=== PATIENT | female | born 1945 | race Caucasian/White ===

== ENCOUNTER 2020-05-18 10:57 | Outpatient (RCR) | payer MEDICARE, SELFPAY ==
--- NOTE | 2020-05-18 13:03 | PTOPEVAL ---
Thank you for referring Apoorva Farfan to [facility] The patient is scheduled to be seen for therapy? ____x/week for ___ weeks. Please review, sign, date and return this plan of care APRIL. I agree with and certify that the following plan of care is medically necessary. Referring Physician Date Admitting Provider: Attending Provider: PHYSICIAN NOT ON STAFF Referring Provider: *PT Outpatient Evaluation Start: 05/18/20 11:06 Freq: Status: Active Protocol: Document 05/18/20 11:05 LAQUITA (Rec: 05/18/20 11:49 [facility] [id number]) Therapy Assessment Status Assessment Status Assessment Status Evaluation Evaluation Information Problem Diagnosis R reverse total shoulder Onset 04/29/20 Subjective Information patient reports she underwent Query Text:As Reported By Patient/ surgery of the R shoulder due Family to pain, weakness, and arthritis. 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 she reports she is has been taken out of the sling as of last week. she reports she is limited in her home and self care at home. she reports she has pain still in the R shoulder. Prior Level of Function Comments Additional Prior Level of Function prior to surgery, patient had Comments tried therapy. she reports the pain came and went and was very weak. she reports just prior to surgery she was in increased pain and unable to lift the arm overhead. Pain Assessment Timing of Pain Assessment Timing of Pain Assessment Assessment Pain Scale Pain Scale Used Numeric (1 - 10) Self Report Pain Assessment Right Shoulder(s) Reported Pain Level 6 Lowest Pain Intensity 2 Greatest Pain Intensity 7 Pain Score Pain Score 6: Self Report Upper Extremity Range of Motion Scapular/ Shoulder Range of Motion Right Shoulder Flexion - Active 55 Shoulder Flexion - Passive 85 Shoulder Medial Rotation - Active 45 Shoulder Lateral Rotation - Active 10 Left Shoulder Flexion - Active 150 Shoulder Flexion - Passive 160 Shoulder Medial Rotation - Active 60 Shoulder Lateral Rotation - Active 90 Elbow/Forearm Range of Motion Right Elbow Flexion - Active 135 Elbow Extension - Active
--- NOTE | 2020-06-17 13:11 | PTOPEVAL ---
Thank you for referring Apoorva Carrillo to [facility].? The patient is scheduled to be seen for therapy? ____x/week for ___ weeks. Please review, sign, date and return this plan of care APRIL. I agree with and certify that the following plan of care is medically necessary. Referring Physician Date Admitting Provider: Attending Provider: PHYSICIAN NOT ON STAFF Referring Provider: *PT Outpatient Evaluation Start: 05/18/20 11:06 Freq: Status: Active Protocol: Document 06/17/20 11:08 [facility] (Rec: 06/17/20 11:45 [facility] [id number]) Therapy Assessment Status Assessment Status Assessment Status Re-evaluation Evaluation Information Problem Diagnosis R reverse total shoulder Subjective Information patient reports she feels Query Text:As Reported By Patient/ good this date. she reports Family her shoulder is feeling better every day, but still [place] some soreness in it. Pain Assessment Timing of Pain Assessment Timing of Pain Assessment Assessment Pain Scale Pain Scale Used Numeric (1 - 10) Self Report Pain Assessment Right Shoulder(s) Reported Pain Level 3 Greatest Pain Intensity 5 Pain Score Pain Score 3: Self Report Upper Extremity Range of Motion Scapular/ Shoulder Range of Motion Right Shoulder Flexion - Active 105 Shoulder Flexion - Passive 130 Shoulder Lateral Rotation - Passive 30 General Exercise General Exercises Exercise Description -15 min PROM per protocol Query Text:Record Sets, Reps, -AROM elbow flexion/ext x 20 Resistance, and Position ea -AROM shoulder flexion/ scaption x 10 ea. -finger ladder x 10 -pulleys x 5 min -5 mintues re-evaluation and HEP reivew PT Clinical Summary Clinical Summary Protocol: PTEVCODE PT Clinical Summary mrs. carrillo tolerates therapy well this date. she presents with having achieved her full PROM mobility allowed at the R shoulder at this time. however, she still lacks full mobility in AROM of the R shoulder. she would do well to continue skilled PT to continue to improve her mobility, and begin adding strengthening exercises of the shoulder late next week after MD [place]
--- NOTE | 2020-07-20 11:54 | PTOPEVAL ---
Thank you for referring Apoorva Farfan to [facility].? The patient is scheduled to be seen for therapy? ____x/week for ___ weeks. Please review, sign, date and return this plan of care APRIL. I agree with and certify that the following plan of care is medically necessary. Referring Physician Date Admitting Provider: Attending Provider: PHYSICIAN NOT ON STAFF Referring Provider: *PT Outpatient Evaluation Start: 05/18/20 11:06 Freq: Status: Active Protocol: Document 07/20/20 10:55 [facility] (Rec: 07/20/20 11:54 [facility] [id number]) Therapy Assessment Status Assessment Status Assessment Status Re-evaluation Evaluation Information Problem Diagnosis R reverse total shoulder Subjective Information patient reports she feels Query Text:As Reported By Patient/ Good this date. she reports Family she still is having difficulty with lifting things with the R UE. however, she reports she is improved since her surgery and is stronger week to week. Pain Assessment Timing of Pain Assessment Timing of Pain Assessment Assessment Pain Scale Pain Scale Used Numeric (1 - 10) Self Report Pain Assessment Right Shoulder(s) Reported Pain Level 2 Greatest Pain Intensity 4 Pain Score Pain Score 2: Self Report Interventions Used Interventions Used By Clinicians Activity or ADL's,Education, Exercise,Heat Upper Extremity Range of Motion Scapular/ Shoulder Range of Motion Right Shoulder Flexion - Active 120 Shoulder Flexion - Passive 145 Shoulder Medial Rotation - Active 55 Shoulder Lateral Rotation - Active 65 Upper Extremity Muscle Strength Testing Scapular/Shoulder Right Shoulder Flexion Strength 4 Good Shoulder Abduction Strength 4- Good - Shoulder Medial Rotation Strength 4+ Good + Shoulder Lateral Rotation Strength 3+ Fair + Elbow/Forearm Right Elbow Flexion Strength 4+ Good + Elbow Extension Strength 4+ Good + General Exercise General Exercises Exercise Description -10 min PROM in all planes per Query Text:Record Sets, Reps, new protocol Resistance, and Position -pulleys x 5 min -AROM elbow curls 2lbs x 25 ea -AROM shoulder flexion shoulder height 2x10 to shoulder level 2lb -AROM shoulder scap no weight to shoulder height 2x10 -arom sidelying shoulder ER 2lb x20 -arom supine shoulder flex 2lb
--- NOTE | 2020-08-03 11:16 | PCPTNOTE ---
patient called and cancelled appt due to testing positive for covid. AMINA
--- NOTE | 2020-10-26 11:16 | PCPTNOTE ---
10/26/20 - patient has not been to therapy in over a month for follow up. she has been called and reports she is doing well and does not need skilled PT any longer. as of this date, patient will be DC'd from skilled PT services and all progress towards goals will be taken from most recent evaluation/note. LAQUITA
== END 2020-08-31 15:17 | disposition home or self-care (01) ==
LOC: CHSPT 10:57
PROVIDERS: PCP Nurse Practitioner Family
DX: Z96.611 Presence of right artificial shoulder joint (principal)
CPT/HCPCS: 97014; 97110; 97161; G0283

== ENCOUNTER 2020-07-31 16:43 | Outpatient (CLI) | payer MEDICARE, SELFPAY ==
[2020-08-02 20:45] LABS: SARS-CoV-2 RNA PCR Positive
== END 2020-07-31 16:44 | disposition home or self-care (01) ==
LOC: CHSLAB 16:46
PROVIDERS: Family Medicine; PCP Nurse Practitioner Family; Visit Provider Nurse Practitioner Family
DX: Z20.828 Contact with and (suspected) exposure to other viral communicable diseases (principal)
CPT/HCPCS: 87635; C9803; U0003

== ENCOUNTER 2020-08-31 11:07 | Outpatient (RCR) | payer MEDICARE, SELFPAY ==
--- NOTE | 2020-09-14 12:11 | PCPTNOTE ---
09/14/20 mrs. carrillo presents to therapy for quick assessment of R shoulder ROM and strength this date. she has attended therapy dating back to may of 2020. as of this date, she presents with improvements in arom shoulder mobility. however, she still presents with deficits in functional IR and ER reaching. she has been continuing HEP exercises at home independently for the past 2 weeks. she is tolerating HEP well and presents with no loss or reduction of progress towards goals. please see below for measurements taken this date. patient is currently planning to continue with HEP at home independently. 130 degrees active flexion, 145 degrees passive flexion 65 degrees active ER, 70 degrees passive ER 55 degrees active IR, 60 degrees active IR 4/5 R shoulder flexion, 4/5 R shoudler ER, 4+/5 R shoulder IR please feel free to contact my office with any other questions or concerns about mrs carrillo's case. thank you for the opportunity to participate in her care and rehab. sincerely, Paxton Medina, DPT [phone]
== END 2020-11-29 23:59 | disposition home or self-care (01) ==
LOC: CHSPT 11:07
PROVIDERS: PCP Nurse Practitioner Family
DX: Z96.611 Presence of right artificial shoulder joint (principal)
CPT/HCPCS: 97110

== ENCOUNTER 2022-09-27 12:31 | Outpatient (CLI) | payer MEDICARE, SELFPAY ==
--- NOTE | ~2022-09-27 | DEXA_ITS ---
Bone Density Report Name: Cristóbal MARTINEZ Age: 77 Sex: Female Ethnicity: White Date of : 1945 Indication: postmenopausal; screening for osteoporosis; prior fracture; Referring Provider: HUNG, KVNG Schrader Study: Bone densitometry was performed. Exam Date: September 27, 2022 Accession number: [id number] Bone Density: Region BMD T-score Z-score Classification AP Spine(L1-L4) 1.203 1.4 3.9 Normal Femoral Neck (Left) 0.636 -1.9 0.2 Osteopenia Total Hip (Left) 0.831 -0.9 0.9 Normal Femoral Neck (Right) 0.637 -1.9 0.2 Osteopenia Total Hip (Right) 0.813 -1.1 0.8 Osteopenia Total Hip Mean 0.822 -1.0 0.9 Normal World Health Organization criteria for BMD impression classify patients as: Normal (T-score at or above -1.0), Osteopenia (T-score between -1.0 and -2.5), or Osteoporosis (T-score at or below -2.5). 10-year Fracture Risk(1): Major Osteoporotic Fracture 20% Hip Fracture 4.6% Reported Risk Factors: [place] (), Neck BMD=0.636, BMI=28.3, previous fracture (1) FRAX(R) Version 3.08. Fracture probability calculated for an untreated patient. Fracture probability may be lower if the patient has received treatment. Clinical Information Provided by Patient: Has had a low trauma fracture Has used the following medications: Vitamin D Patient maximum height was 67 Menopause Age: 56 No regular weight bearing exercise Does not regularly consume dairy products Drinks caffeinated beverages Onset of menses at age 16 Number of children 4 Impression: The patient has low bone mass, based on the Left Femoral Neck T-score. The patient has an estimated ten-year risk of hip fracture of 4.6% and an estimated ten-year risk of major fracture of 20%, based on the WHO FRAX algorithm. The patient has risk factors, including: previous fracture. Discussion: BONE DENSITY IS LOW AT ONE OR MORE SKELETAL SITES. THE PATIENT'S BMD AND CLINICAL RISK FACTORS CONTRIBUTE TO THIS PATIENT'S HIGH RISK OF FRACTURE. This patient's lowest T-score is low at one or more skeletal sites. It meets the World Health Organization's (WHO) criteria for ?low bone mass? (T-score between -1.0 and -2.5). The patient's 10-year risk of hip fracture and 10 year risk of a major osteoporotic fracture as calculated by FRAX exceeds the threshold where pharmacological therapy is recommended by the National Osteoporosis Foundation (NOF). However, all treatment decisions require clinical judgment and consideration of individual patient factors, including patient preferences, comorbidities, previous drug use, risk factors not captured in the FRAX model (e.g., frailty, falls, vitamin D deficiency, increased bone turnover, interval significant decline in bone density) and possible under or overestimation of fracture risk by FRAX. The patient
== END 2022-09-27 12:32 | disposition home or self-care (01) ==
LOC: ANHIMG 12:32
PROVIDERS: PCP Family Medicine; Visit Provider Family Medicine
DX: Z78.0 Asymptomatic menopausal state (principal); M85.89 Other specified disorders of bone density and structure, multiple sites
CPT/HCPCS: 77080

== ENCOUNTER 2024-12-23 14:07 | Outpatient (CLI) | payer MEDICARE, SELFPAY ==
--- NOTE | ~2024-12-23 | MM_ITS ---
EXAMINATION: MM screening navarro BI w romina HISTORY: Screening TECHNIQUE: Craniocaudal and mediolateral oblique 3-D tomosynthesis images were obtained and synthetic 2-D images were generated. CAD analysis was submitted and interpreted. COMPARISON: No prior studies for comparison. BREAST PARENCHYMAL COMPOSITION: Not dense: There are scattered areas of fibroglandular density. FINDINGS: There is no evidence of suspicious mass, calcification, or architectural distortion to sugg est malignancy in either breast. There has been no suspicious interval change. IMPRESSION: 1. No mammographic evidence of malignancy. 2. Recommend routine screening mammography in one year. BI-RADS Category 1: Negative Reviewed, dictated and finalized at location A.
--- OUTSIDE RECORDS SUMMARY | 2024-12-23 16:15 | XMS_ITS | Clinical Summary ---
Author Organization [facility] Address [address] [place] [phone] Care Team Providers Care Entertainment Dancer Name Role Phone Pernell Topete MD Primary Care Provider Allergies Active Allergy Reactions Criticality Noted Date Comments Adhesive Rash Medium 03/24/2020 Codeine Nausea only Low 03/24/2020 Penicillins Unknown 03/24/2020 Medications cyanocobalamin, vitamin B-12, (VITAMIN B-12 ORAL) Take 500 mg by mouth 2 (two) times a day Active multivit-min/ferr ous fumarate (MULTI VITAMIN ORAL) Take 1 tablet by mouth every morning Active Lactobacillus acidophilus (PROBIOTIC ORAL) Take 1 tablet by mouth every morning Active cholecalciferol, vitamin D3, (VITAMIN D3 ORAL) Take by mouth Active aspirin 81 mg enteric coated tablet Take 1 tablet (81 mg total) by mouth daily Active acetaminophen (TylenoL) 325 mg tablet Take 2 tablets (650 mg total) by mouth every 6 (six) hours as needed for pain 4 Active amLODIPine (NORVASC) 2.5 mg tablet Take 1 tablet (2.5 mg total) by mouth daily Take with 5 mg tablet to bring total dosage to 7.5 mg daily 90 tablet 3 4 12/27/19 25 Active ibuprofen (ADVIL,MOTRIN) 800 mg tabletIndications :Anti-inflammator y Take 1 tablet (800 mg total) by mouth 3 (three) times a day as needed for pain 90 tablet 4 Active albuterol HFA (Proventil HFA) 90 mcg/actuation inhalerIndication s:Subacute cough Inhale 2 puffs every 4 (four) hours as needed for wheezing or shortness of breath 6.73 each 4 4 04/25/20 25 Active losartan (COZAAR) 50 mg tabletIndications :Primary hypertension Take 1 tablet (50 mg total) by mouth daily 90 tablet 3 4 Active metoprolol (LOPRESSOR) 100 mg tabletIndications :Primary hypertension Take 1 tablet (100 mg total) by mouth daily 90 tablet 3 4 Active amLODIPine (NORVASC) 5 mg tabletIndications :Primary hypertension TAKE 1 TABLET BY MOUTH DAILY TAKE WITH 2.5 MG TABLET FOR A TOTAL DAILY DOSE OF 7.5 MG 100 tablet 2 5 Active doxycycline (VIBRAMYCIN) 100 mg capsule Take 1 tablet/capsul e (100 mg total) by mouth 2 (two) times a day for 5 days 10 tablet/capsu le 5 11/26/19 25 Active Problems Problem Noted Date Diagnosed Date Encounter for Medicare annual wellness exam 09/05 Assessment & Plan (10/02/2023 9:25 AM SPECIALIZED DEVELOPER): A(n) yearly Medicare Annual Wellness Visit has been performed today. Cristóbal Farfan is not up to date on screening tests. He is in need of Breast cancer screening. She is not up to date on needed preventative vaccinations; She is in need of Tdap/Td, Influenza, Zoster, and Covid-19 (booster). We discussed healthy lifestyle habits, educational material has been given. Medications reviewed, changes documented as per the medical record and discussed with patient along with risks vs benefits. Continue current regimen Labs reviewed; noted improvement in LDL especially Triglycerides still need work; Try to make lifestyle modifications such as: a low carbohydrate diet, daily routine exercise (at least 30 mins a day, 5 days a week of light to moderate cardio) and weight reduction. Add good fish oil or omega-3 fatty acid supplement Return in 6 months Encounter for medical examination to establish c are 02/07/2022 Assessment & Plan (09/06/2022 12:36 PM SPECIALIZED DEVELOPER): A(n) yearly Medicare Annual Wellness Visit has been performed today. Cristóbal Farfan is not up to date on screening tests. She is in need of DEXA, Hepatitis C and Colon cancer screening- patient relates that she had her colonoscopy around 5 years ago in [place]. She is not up to date on needed preventative vaccinations; She is in need of Pneumonia (Prevnar-13 or Pneumovax-23) and Covid-19 (booster). Pneumonia vaccination given today BP is controlled well Continuing current regimen Labs look well (the triglycerides improved, HDL has decreased however). Encouraged exercise to improve HDL/good cholesterol Assessment & Plan (02/07/2022 12:05 PM CDT): A(n) initial Medicare Annual Wellness Visit has been performed today. Apoorva Farfan is up to date on screening tests. She is in need of DEXA, Hepatitis C screening and Colon cancer screening- getting outside records. She is not up to date on needed preventative vaccinations; She is in need of Tdap/Td, Pneumonia (Prevnar-13 or Pneumovax-23) and Zoster. BP improved upon recheck. I still will want to increase amlodipine to 7.5 mg daily (1 and a half pill daily) Continue others Will see back in 1 month Labs as ordered Ringing in ears, bilateral 09/15/2021 Assessment & Plan (09/17/2021 10:42 PM SPECIALIZED DEVELOPER): Continue with Alivia 60mg bid. May use Flonase at HS, one spray each nostril in the PM Do not try and pop ears. Dizziness on standing 08/31/2021 Assessment & Plan (09/17/2021 10:48 PM SPECIALIZED DEVELOPER): Continue with Alivia and Flonase as previously stated. Orthostatic pressures taken sitting and standing without any difference. Patient denied any dizziness at that time. Romberg done, negative. Assessment & Plan (09/02/2021 10:55 PM SPECIALIZED DEVELOPER): Make sure she is drinking enough fluids. Checked blood pressure for orthostatic problems No major differences in orthostatic pressures. Will continue to monitor blood pressure at home. Will start Meclizine 12.5mg at HS Allergic rhinitis due to allergen 08/31/2021 Assessment & Plan (09/17/2021 10:40 PM SPECIALIZED DEVELOPER): Continue with Alivia 60 mg bid. Talked about avoid triggers. Assessment & Plan (09/02/2021 10:43 PM SPECIALIZED DEVELOPER): Continue to take Alivia 60 mg daily, can increase dose to bid and up to tid. Talked about watching allergens.new and old. Risk factors for obstructive sleep apnea 020 HTN (hypertension) 04/27/2020 Assessment & Plan (09/17/2021 10:39 PM SPECIALIZED DEVELOPER): Continue with medication as ordered. Talked about diet, avoiding salt and salty food. Talked about home exercise program for 30 min , 3 times a week. Adequate fluids. Will do lab work at next visit. Assessment & Plan (09/02/2021 10:41 PM SPECIALIZED DEVELOPER): Continue with medication as ordered Encouraged to monitor BP at home at least 3 times a week at alternate time. Exercise 3 times a week for 30 minutes. Eat balanced, low salt diet or no added salt to food. Lab work due. Rotator cuff tear arthropathy of right shoulder 03/25/2020 Overview (03/25/2020): Added automatically from request for surgery [id number] Assessment & Plan (09/17/2021 10:44 PM SPECIALIZED DEVELOPER): Note continues to have some right shoulder pain. Encouraged to continue with exercises she got from PT on a daily basis. Note is also using some Topical meds for shoulder pain. Watch lifting with her right arm and shoulder. Assessment & Plan (09/02/2021 10:57 PM SPECIALIZED DEVELOPER): Note right shoulder is stable. Still has some limited ROM\ Encouraged to continue with exercise shoulder as advised by PT. Patient states shoulder is getting stronger. Encounters Date Type Department Care Team Description 11/24/2024 Telephone [facility] Primary Care at [address] [phone] Pernell Topete MD Medical Question/Krystynacellchris s 11/20/2024 1:30 PM CDT Office Visit [facility] at [address] [phone] Pernell Topete MD Encounter for annual wellness visit (AWV) in Medicare patient (Primary Dx); Vitamin D insufficiency; Primary hypertension; Chronic pain of right knee; Breast cancer screening by mammogram; Screening for osteoporosis; Asymptomatic menopausal state 2024 1:00 PM SPECIALIZED DEVELOPER Lab [facility] at [address] [phone] HTN (hypertension) (Primary Dx) 2024 12:48 PM SPECIALIZED DEVELOPER - 2024 11:59 PM SPECIALIZED DEVELOPER Hospital Encounter [place] [phone] Primary hypertension; Vitamin D insufficiency Discharge Disposition: Discharge to home or self care from Last 3 Months Immunizations Immunization Administration Dates Next Due Influenza, Unspecified 11/20/2024(Deferr ed: Patient Refused),10/02/2023(Deferred: Patient Refused),09/04/2023(Deferred: Patient Refused),09/06/2022(Deferred: Patient Refused),09/04/2022(Deferred: Patient Refused),09/04/2021(Deferred: Patient Refused),09/03/2021(Deferred: Patient Refused),08/31/2021(Deferred: Patient Refused),08/31/2020(Deferred: Patient Refused) Pfizer SARS-CoV-2 Monovalent Vaccination (12+ Yrs) PURPLE 09/11/2021,10/27/2020,10/06/2020 Pneumococcal Conjugate Pcv20 09/06/2022 ZOSTER Recombinant 07/08/2023,06/04/2023 Surgical History Surgery Date Site/Laterality Comments TONSILLECTOMY APPENDECTOMY SHOULDER SURGERY CHOLECYSTECTOMY OVARY SURGERY DILATION AND CURETTAGE OF UTERUS Medical History Medical History Date Comments Hypertension Family History Medical History Relation Name Comments Asthma Brother COPD Brother Prostate cancer Father Alzheimer's disease Mother COPD Mother Relation Name Status Comments Brother Father Mother Social History Tobacco Use Types Packs/Day Years Used Date Smoking Tobacco: Never Smokeless Tobacco: Never Tobacco Cessation:Counseling Given: Not Answered Alcohol Use Standard Drinks/Week Comments Yes 0 (1 standard drink = 0.6 oz pur e alcohol) social AUDIT-C Answer Date Recorded Q1: How often do you have a drink containing alcohol? Never 10/02/2023 Q2: How many drinks containi ng alcohol do you have on a typical day when you are drinking? Patient does not drink Q3: How often do you have si x or more drinks on one occasion? Never 10/02/2023 PHQ-2 Answer Date Recorded PHQ-2 Total Score (If total score is 3 or more points, staff should administer the PHQ-9) 0 11/20/2024 Comments Unknown Sex and Gender Information Value Date Recorded Sex Assigned at Not on file Legal Sex Female 9:21 AM CDT Gender Identity Not on file Sexual Orientation Not on file Obstetrics History Last Filed Vital Signs Vital Sign Reading Time Taken Comments Blood Pressure 110/70 11/20/2024 10:56 AM CDT Pulse 78 11/20/2024 10:56 AM CDT Temperature 35.9 C (96.7 F) 11/20/2024 10:56 AM CDT Respiratory Rate 16 11/20/2024 10:56 AM CDT Oxygen Saturation 96% 11/20/2024 10:56 AM CDT Inhaled Oxygen Concentration - - Weight 79.4 kg (175 lb) 11/20/2024 10:56 AM CDT Height 170.2 cm (5' 7 ) 11/20/2024 10:56 AM CDT Body Mass Index 27.41 11/20/2024 10:56 AM CDT Plan of Treatment Health Maintenance Due Date Last Done Comments Hepatitis B Screening 1963 Breast Cancer Screening-Mammogram 09/14/2023 09/14/2022, 09/14/2022, 08/30/2021, Additional history exists Covid-19 Vaccine ( season) 2024 09/11/2021, 10/27/2020, 10/06/2020 Osteoporosis Screening-Bone Density Scan 09/27/2024 09/27/2022 Influenza Vaccine (#1) 2025 Postp oned from 05/04/2024 (Patient declined, but will receive in the future) DTaP/Tdap/Td Vaccine (1 - Tdap) 09/02/2025 Postponed from 1956 (Insurance / Financial) Depression Screening 11/20/2025 11/20/2024, 04/01/2024, 10/02/2023, Additional history exists Fall Risk Assessment 11/20/2025 11/20/2024, 10/02/2023, 03/07/2023, Additional history exists Well Visit 65+ 11/20/2025 11/20/2024, 09/05, 09/06/2022 Pneumococcal vaccine 65+ Completed 09/06/2022 Colon Cancer Screening-DNA Stool Discontinued 09/20/2022 Colon Cancer Screening-FIT Discontinued 09/20/2022 Colon Cancer Screening-FOBT Discontinued 09/20/2022 Colorectal Cancer Screening Discontinued Hepatitis C Screening Completed 03/07/2023 Zoster Vaccine Completed 07/08/2023, 06/04/2023 Colon Cancer Screening-CT Colonography Discontinued Colon Cancer Screening-Colonoscopy Discontinued Colon Cancer Screening-Sigmoidoscopy Discontinued Medical Devices Implanted Type Area Tomato Grader Device Identifier Shelf Expiration Date Model / Serial / Lot [employer] [id number] 25mm Reverse Shoulder Baseplate Glenoid Trabecular Metal - [id number] Implanted:Qty: 1 on 04/29/2020 by Hoang Bates MD at [facility] Right: Shoulder [employer] [id number] 12/01/2029 [id number] / / [id number] [employer] .29911.042 Ncb Anatomical Shoulder 4.5mm 42mm Inverse Reverse Lock Self Tap - [id number] Implanted:Qty: 1 on 04/29/2020 by Hoang Bates MD at [facility] Right: Shoulder [employer] [id number] 08/02/2022.25364.042 / / [id number] [employer] .76000.042 Ncb Anatomical Shoulder 4.5mm 42mm Inverse Reverse Lock Self Tap - [id number] Implanted:Qty: 1 on 04/29/2020 by Hoang Bates MD at [facility] Right: Shoulder [employer] [id number] 09/02/2022.29799.042 / / [id number] [employer] [id number] 36mm Reverse Shoulder Sphere Glenoid Trabecular Metal - [id number] Implanted:Qty: 1 on 04/29/2020 by Hoang Bates MD at [facility] Right: Shoulder [employer] [id number] 03/02/2030 [id number] / / [id number] [employer] [id number] 12mm 130mm Shoulder Stem Humeral Trabecular Metal Tivanium - [id number] Implanted:Qty: 1 on 04/29/2020 by Hoang Bates MD at [facility] Right: Shoulder [employer] [id number] 12/01/2029 [id number] / / [id number] [employer] [id number] 36mm H+3mm Reverse Retentive Humerus 12d 65d Liner Shoulder - [id number] Implanted:Qty: 1 on 04/29/2020 by Hoang Bates MD at [facility] Right: Shoulder [employer] [id number] 03/02/2021 [id number] / / [id number] Procedures Procedure Name Priority Date/Time Associated Diagnosis Comments EGFR Routine 2024 12:48 PM SPECIALIZED DEVELOPER Primary hypertension DIFFERENTIAL AUTO Routine 2024 12: 48 PM SPECIALIZED DEVELOPER Primary hypertension THYROID FUNCTION CASCADE Routine 2024 12:48 PM SPECIALIZED DEVELOPER Primary hypertension VITAMIN D 25 HYDROXY Routine 2024 12:48 PM SPECIALIZED DEVELOPER Vitamin D insufficiency LIPID PANEL Routine 2024 12:48 PM SPECIALIZED DEVELOPER Primary hypertension COMPREHENSIVE METABOLIC PANEL Routine 2024 12:48 PM SPECIALIZED DEVELOPER Primary hypertension CBC WITH AUTO DIFFERENTIAL Routine 2024 12:48 PM SPECIALIZED DEVELOPER Primary hypertension HEPATITIS C ANTIBODY Routine 03/07/2023 11:47 AM CDT Need for hepatitis C screening test STOOL DNA COLOGUARD Routine 09/20/2022 9:25 AM SPECIALIZED DEVELOPER Colon cancer screening HM MAMMOGRAPHY Routine 09/14/2022 from Last 3 Months or Most Recently Relevant to Health Maintenance Results * eGFR (2024 12:48 PM SPECIALIZED DEVELOPER) eGFR 79 >=60 mL/min/1. 73 m2 Comment: Interpretive Data Reference Interval Normal >/= 90 mL/min/1.73m2 Mildly decreased* 60 - 89 mL/min/1.73m2 Mildly to moderately decreased 45 - 59 mL/min/1.73m2 Moderately to severely decreased 30 - 44 mL/min/1.73m2 Severely decreased 15 - 29 mL/min/1.73m2 Kidney Failure < 15 mL/min/1.73m2 *Relative to young adult level Estimated glomerular filtration rate is determined by the 2020 CKD-EPI equation recommended by the National Kidney Foundation (A Unifying Approach to GFR Estimation: Recommendations of the NKF-ASK Task Force on Reassessing the Inclusion of Race in Diagnosing Kidney Disease, JASN 2020). The CKD-EPI equation should not be used for patients with unstable renal function and has not been validated in children and those over 70. Current interpretive data was last reviewed 2021. Blood 2024 12:4 8 PM SPECIALIZED DEVELOPER 2024 9:59 PM SPECIALIZED DEVELOPER Pernell Topete MD LAB BLOOD ORDERABLES Final Result [facility] SHEPHERD [id number] Department [place] [address] * Differential, auto (2024 12:48 PM SPECIALIZED DEVELOPER) Neutrophil abs 3.3 1.5 - 6.5 K/cumm Imm gran abs 0.0 0.0 - 0.1 K/cumm [facility] Lymphocyte abs 1.5 0.8 - 3.3 K/cumm [facility] Monocyte abs 0.5 0.2 - 0.8 K/cumm [facility] Eosinophil abs 0.2 0.0 - 0.5 K/cumm [facility] Basophil abs 0.0 0.0 - 0.1 K/cumm [facility] Neutrophil pct 59.8 % [facility] Comment: Interpretive Data Percent cell count reference ranges are not reported, since discordance with absolute values may lead to misinterpretation of CBC data. Current Interpretive Data was last revised on 2017. Imm gran pct 0.2 % [facility] Comment: Interpretive Data Percent cell count reference ranges are not reported, since discordance with absolute values may lead to misinterpretation of CBC data. Current Interpretive Data was last revised on 2017. Lymphocyte pct 26.7 % [facility] Comment: Interpretive Data Percent cell count reference ranges are not reported, since discordance with absolute values may lead to misinterpretation of CBC data. Current Interpretive Data was last revised on 2017. Monocyte pct 9.3 % [facility] Comment: Interpretive Data Percent cell count reference ranges are not reported, since discordance with absolute values may lead to misinterpretation of CBC data. Current Interpretive Data was last revised on 2017. Eosinophil pct 3.3 % [facility] Comment: Interpretive Data Percent cell count reference ranges are not reported, since discordance with absolute values may lead to misinterpretation of CBC data. Current Interpretive Data was last revised on 2017. Basophil pct 0.7 % [facility] Comment: Interpretive Data Percent cell count reference ranges are not reported, since discordance with absolute values may lead to misinterpretation of CBC data. Current Interpretive Data was last revised on 2017. Blood 2024 12:4 8 PM SPECIALIZED DEVELOPER 2024 9:24 PM SPECIALIZED DEVELOPER us Pernell Topete MD LAB BLOOD ORDERABLES Final Result [facility] SHEPHERD [id number] Department [place] [address] * Thyroid Function [place] (2024 12:48 PM SPECIALIZED DEVELOPER) TSH 1.85 0.30 - 4.20 mcIUnit/mL Blood 2024 12:4 8 PM SPECIALIZED DEVELOPER 2024 9:24 PM SPECIALIZED DEVELOPER Pernell Topete MD LAB BLOOD ORDERABLES Final Result JEANNIE [address] [place] [address] * (ABNORMAL) CBC with auto differential (2024 12:48 PM SPECIALIZED DEVELOPER) WBC 5.5 3.8 - 9.9 K/cumm Hgb 13.4 11.9 - 15.5 g/dL [facility] Hct 42.0 35.6 - 45.5 % [facility] Plt 293 150 - 400 K/cumm [facility] MPV 10.6 9.1 - 12.3 fL [facility] RBC 4.54 3.90 - 5.20 M/cumm [facility] MCV 92.5 81.3 - 96.4 fL [facility] MCH 29.5 27.1 - 33.3 pg [facility] MCHC 31.9(L) 32.3 - 35.7 g/dL [facility] RDW CV 12.5 11.1 - 14.9 % [facility] RDW SD 42.4 35.7 - 48.1 fL [facility] NRBC abs 0.00 0.00 - 0.01 K/cumm [facility] Blood 2024 12:4 8 PM SPECIALIZED DEVELOPER 2024 9:24 PM SPECIALIZED DEVELOPER Pernell Topete MD LAB BLOOD ORDERABLES Final Result JEANNIE SHEPHERD [id number] [employer] [place] [address] * Vitamin D 25 hydroxy (2024 12:48 PM SPECIALIZED DEVELOPER) Vitamin D 25-OH 69 30 - 80 ng/mL Blood 2024 12:4 8 PM SPECIALIZED DEVELOPER 2024 9:24 PM SPECIALIZED DEVELOPER us Pernell Topete MD LAB BLOOD ORDERABLES Final Result [facility]ANN[facility] SHEPHERD [id number] Department [place] [address] * (ABNORMAL) Lipid panel (2024 12:48 PM SPECIALIZED DEVELOPER) Cholesterol 187 30 - 199 mg/dL Comment: Interpretive Data Ages < or = 19 years Acceptable: <170 mg/dL Borderline high: 170-199 mg/dL High: >or= 200 mg/dL Ages > or = 20 years Desirable: <200 mg/dL Borderline high: 200-239 mg/dL High: >or= 240 mg/dL Literature References: 1. Expert Panel on Integrated Guidelines for Cardiovascular Health and Risk Reduction in Children and Adolescents. Pediatrics 2011;128:S213 2. NCEP Expert Panel. Circulation 2004;110:227 Current Interpretive Data was last revised on 2018. Triglycerides 280(H) <=149 mg/dL [facility] Comment: Interpretive Data Ages < or = 9 years Acceptable: <75 mg/dL Borderline high: 75-99 mg/dL High: >or= 100 mg/dL Ages 10 to 20 years Acceptable: <90 mg/dL Borderline high: 90-129 mg/dL High: >or= 130 mg/dL Ages > or = 20 years Desirable: <150 mg/dL Borderline high: 150-199 mg/dL High: 200-499 mg/dL Very high: >or= 499 mg/dL Literature References: 1. Expert Panel on Integrated Guidelines for Cardiovascular Health and Risk Reduction in Children and Adolescents. Pediatrics 2011;128:S213 2. NCEP Expert Panel. Circulation 2004;110:227 Current Interpretive Data was last revised on 2018. HDL 42 >=40 mg/dL [facility]PHERD Comment: Interpretive Data Ages < or = 19 years Acceptable: >45 mg/dL Borderline low: 40-45 mg/dL Low: <40 mg/dL Ages > or = 20 years Desirable: >or= 60 mg/dL Low: <40 mg/dL Literature References: 1. Expert Panel on Integrated Guidelines for Cardiovascular Health and Risk Reduction in Children and Adolescents. Pediatrics 2011;128:S213 2. NCEP Expert Panel. Circulation 2004;110:227 Current Interpretive Data was last revised on 2018. LDL, calculated 98 <=129 mg/dL [facility]PHERD Comment: Interpretive Data Ages < or = 19 years Acceptable: <110 mg/dL Borderline high: 110-129 mg/dL High: >or= 130 mg/dL Ages > or = 20 years Optimal: <100 mg/dL Near optimal: 100-129 mg/dL Borderline high: 130-159 mg/dL High: >160 mg/dL Calculated using the Mir LDL-C estimating equation. This equation was implemented on 2024. Prior to this date LDL-C was estimated using the Friedewald equation. Literature References: 1. Expert Panel on Integrated Guidelines for Cardiovascular Health and Risk Reduction in Children and Adolescents. Pediatrics 2011;128:S213 2. NCEP Expert Panel. Circulation 2004;110:227 3. Mir Galvez et al. ИРИНА Cardiol. 2019January 01;5(5):540-548. doi: 10.1001/[email or web address].2020.0013 Current Interpretive Data was last revised on 2024. Non-HDL Cholesterol 145 mg/dL [facility]ANN[facility]PHERD Comment: Interpretive Data Ages < or = 19 years Acceptable: <120 mg/dL Borderline high: 120-144 mg/dL High: >145 mg/dL Ages > or = 20 years When triglycerides are >200 mg/dL, Non-HDL cholesterol is a secondary target of therapy with treatment goals that are 30 mg/dL greater than the LDL cholesterol target. Literature References: 1. Expert Panel on Integrated Guidelines for Cardiovascular Health and Risk Reduction in Children and Adolescents. Pediatrics 2011;128:S213 2. NCEP Expert Panel. Circulation 2004;110:227 Current Interpretive Data was last revised on 2018. Chol/HDL ratio 4 [facility]ANN[facility] SHEPHERD Blood 2024 12:4 8 PM SPECIALIZED DEVELOPER 2024 9:24 PM SPECIALIZED DEVELOPER us Pernell Topete MD LAB BLOOD ORDERABLES Final Result JEANNIE SHEPHERD [address] Department [place] [address] * Comprehensive metabolic panel (2024 12:48 PM SPECIALIZED DEVELOPER) Sodium 142 135 - 145 mmol/L Potassium, pl 4.0 3.3 - 4.9 mmol/L [facility] Chloride 104 97 - 110 mmol/L [facility] CO2 26 22 - 32 mmol/L [facility] Anion gap 12 2 - 15 mmol/L [facility] BUN 14 6 - 25 mg/dL [facility] Creatinine 0.77 0.60 - 1.10 mg/dL [facility] Glucose 141 70 - 199 mg/dL [facility] Comment: Interpretive Data Fasting glucose >/= 126 mg/dl is diagnostic for diabetes. Fasting is defined as no caloric intake for at least 8 hours. Fasting glucose between 100 mg/dl to 125 mg/dl is diagnostic of prediabetes. In a patient with classic symptoms of hyperglycemia or hyperglycemic crisis, a random glucose >/= 200 mg/dl is diagnostic for diabetes. In the absence of unequivocal hyperglycemia, results should be confirmed by repeat testing. The classification and Diagnosis of Diabetes Diabetes Care 2021; 46: S19-S40. Current interpretive data was last revised 2022. Calcium 9.3 8.5 - 10.3 mg/dL [facility] Bilirubin, total 0.5 0.1 - 1.2 mg/dL [facility] Protein, pl 7.0 6.5 - 8.5 g/dL [facility] Albumin 4.1 3.5 - 5.0 g/dL [facility] Alk phos 94 40 - 130 Units/L [facility] ALT 19 7 - 45 Units/L [facility] AST 26 10 - 45 Units/L [facility] Blood 2024 12:4 8 PM SPECIALIZED DEVELOPER 2024 9:24 PM SPECIALIZED DEVELOPER us Pernell Topete MD LAB BLOOD ORDERABLES Final Result [facility]ANN[facility] SHEPHERD [id number] Department [place] [address] * Hepatitis C antibody (03/07/2023 11:47 AM CDT) Hep C Ab Nonreactive Nonreactive [facility] Comment: Interpretive Data Nonreactive: Antibodies to HCV not detected. Does NOT exclude the possibility of recent exposure to HCV. Equivocal: Equivocal for HCV antibodies. Supplemental molecular testing will be automatically performed to determine infection status in accordance with current CDC screening recommendations. Reactive: Positive for HCV antibodies. This may represent current or past HCV infection. Supplemental molecular testing will be automatically performed to determine current infection status in accordance with current CDC screening recommendations. Interpretive data was last revised on 2019. Blood 03/07/2023 11:4 7 AM CDT 03/07/2023 8:30 PM CDT us Pernell Topete MD LAB MICROBIOLOGY - GENERAL ORDERABLES Final Result JEANNIE SHEPHERD [address] Department [place] [address] * Stool DNA - Cologuard (09/20/2022 9:25 AM SPECIALIZED DEVELOPER) Stool DNA - Cologuard Negative Negative Generate (CLIA #:[id number]) Comment: NEGATIVE TEST RESULT. A negative Cologuard result indicates a low likelihood that a colorectal cancer (CRC) or advanced adenoma (adenomatous polyps with more advanced pre-malignant features) is present. The chance that a person with a negative Cologuard test has a colorectal cancer is less than 1 in 1500 (negative predictive value >99.9%) or has an advanced adenoma is less than 5.3% (negative predictive value 94.7%). These data are based on a prospective cross-sectional study of 10,000 individuals at average risk for colorectal cancer who were screened with both Cologuard and colonoscopy. (Yousif Brooks et al, N Engl J Med 2014;370(14):3220-0699) The normal value (reference range) for this assay is negative. COLOGUARD RE-SCREENING RECOMMENDATION: Periodic colorectal cancer screening is an important part of preventive healthcare for asymptomatic individuals at average risk for colorectal cancer. Following a negative Cologuard result, the [place] Cancer Society and U.S. Multi-Society Task Force screening guidelines recommend a Cologuard re-screening interval of 3 years. References: [place] Cancer Society Guideline for Colorectal Cancer Screening: https://www.cancer.org/cancer/dshlq-fstppg-alwvxt/kfvazyhho-jmezmimzs-qvpqxtd/ac s-rec ommendations.html.; Willie OSPINA, Delvin ROBINS, David MccoyK, Colorectal Cancer Screening: Recommendations for Physicians and Patients from the U.S. Multi-Society Task Force on Colorectal Cancer Screening , Am J Gastroenterology 2017; 112:0006-1704. TEST DESCRIPTION: Composite algorithmic analysis of stool DNA-biomarkers with hemoglobin immunoassay. Quantitative values of individual biomarkers are not reportable and are not associated with individual biomarker result reference ranges. Cologuard is intended for colorectal cancer screening of adults of either sex, 45 years or older, who are at average-risk for colorectal cancer (CRC). Cologuard has been approved for use by the U.S. FDA. The performance of Cologuard was established in a cross sectional study of average-risk adults aged 50-84. Cologuard performance in patients ages 45 to 49 years was estimated by sub-group analysis of near-age groups. Colonoscopies performed for a positive result may find as the most clinically significant lesion: colorectal cancer [4.0%], advanced adenoma (including sessile serrated polyps greater than or equal to 1cm diameter) [20%] or non- advanced adenoma [31%]; or no colorectal neoplasia [45%]. These estimates are derived from a prospective cross-sectional screening study of 10,000 individuals at average risk for colorectal cancer who were screened with both Cologuard and colonoscopy. (Yousif Tamez. et al, N Engl J Med 2014;370(14):2969-0638.) Cologuard may produce a false negative or false positive result (no colorectal cancer or precancerous polyp present at colonoscopy follow up). A negative Cologuard test result does not guarantee the absence of CRC or advanced adenoma (pre-cancer). The current Cologuard screening interval is every 3 years. ([place] Cancer Society and U.S. Multi-Society Task Force). Cologuard performance data in a 10,000 patient pivotal study using colonoscopy as the reference method can be accessed at the following location: www.[employer]/results. Additional description of the Cologuard test process, warnings and precautions can be found at www.cologuard.com. Stool 09/20/2022 9:25 AM SPECIALIZED DEVELOPER 09/21/2022 12:39 PM SPECIALIZED DEVELOPER us Pernell Topete MD LAB BODY FLUIDS AND STOOLS ORDERABLES Final Result [facility] (CLIA #:[id number]) [place] [address] * HM MAMMOGRAPHY (09/14/2022) us Historical Provider HEALTH MAINTENANCE Final Result from Last 3 Months or Most Recently Relevant to Health Maintenance Insurance MEDICARE [facility] Address: [address] [address] [place] [address] [facility] Address: [facility] [address] [place] [address] Advance Directives For more information, please contact: [phone] * Full Code (Latest Code Status on File) Date Activated Date Inactivated Comments 04/29/2020 1:26 PM 04/30/2020 8:18 PM Care Teams Entertainment Dancer Relationship Specialty [place] [address] [place] [id number] PCP - General Family Medicine 02/06/22
--- OUTSIDE RECORDS SUMMARY | 2024-12-23 16:15 | XMS_ITS | Clinical Summary ---
Author Organization [facility] Address [address] [place] [address] Care Team Providers Care Guidance Services Coordinator Name Role Phone Pernell Topete MD Primary Care Provider Medications LOSARTAN 50 MG tabletIndications :Primary hypertension Take 1 tablet by mouth once daily 90 tablet 09/05/2021 Active Family History Medical History Relation Comments Breast Cancer Neg Hx Social History Tobacco Use Types Packs/Day Years Used Date Smoking Tobacco: Never Assessed Comments Unknown Sex and Gender Information Value Date Recorded Sex Assigned at Not on file Legal Sex Female 4:32 PM CDT Gender Identity Not on file Sexual Orientation Not on file Last Filed Vital Signs Vital Sign Reading Time Taken Comments Blood Pressure 142/90 01/05/2014 9:16 AM CDT Pulse 80 01/05/2014 9:16 AM CDT Temperature - - Respiratory Rate - - Oxygen Saturation - - Inhaled Oxygen Concentration - - Weight 76.7 kg (169 lb) 01/05/2014 9:16 AM CDT Height 170.2 cm (5' 7 ) 01/05/2014 9:16 AM CDT Body Mass Index 26.47 01/05/2014 9:16 AM CDT Plan of Treatment Health Maintenance Due Date Last Done Comments Hepatitis C 1964 Zoster Vaccines (1 of 2) 1996 Annual Medicare Wellness Visit 2011 Dexa Scan (General) 2011 RSV Immunization or 60+ Years (1 - 1-dose 75+ series) 2021 DTaP, Tdap and Td Vaccines ( 2 - Td or Tdap) 12/30/2023 12/29/2013 COVID-19 Vaccine (4 - 4-2 5 season) 2024 09/11/2021, 10/27/2020, 10/06/2020 Pneumococcal Vaccine: 50+ Years Completed 09/06/2022 Meningococcal B Vaccine Aged Out No l onger eligible based on patient's age to complete this topic Meningococcal Vaccine Aged Out No lexi clara eligible based on patient's age to complete this topic RSV Immunizations Under 20 Months Aged Out No longer eligible b ased on patient's age to complete this topic Insurance [facility] [address] Care Teams Guidance Services Coordinator Relationship Specialty Start Date End Date Pernell Topete MD [address] [place] [address] [address] [place] [address] PCP - General FAMILY PRACTICE 09/14/22
--- OUTSIDE RECORDS SUMMARY | 2024-12-23 16:15 | XMS_ITS | Referral Summary ---
Author Organization [facility] Address [address] [place] [id number] Care Team Providers Care Street Photographer Name Role Phone Pernell Topete MD Primary Care Provider [phone] Encounters Date Type Department Care Team Description 11/24/2024 Telephone [facility] Primary Care at [address] [address] Pernell Topete MD Medical Question/Miscellaneou s 11/20/2024 1:30 PM CDT Office Visit [facility] Primary Care at [address] [address] Pernell Topete MD Encounter for annual wellness visit (AWV) in Medicare patient (Primary Dx); Vitamin D insufficiency; Primary hypertension; Chronic pain of right knee; Breast cancer screening by mammogram; Screening for osteoporosis; Asymptomatic menopausal state 2024 12:48 PM DIRECTOR OF AVIATION - 2024 11:59 PM DIRECTOR OF AVIATION Hospital Encounter [facility] [id number] [place] [address] Primary hypertension; Vitamin D insufficiency Discharge Disposition: Discharge to home or self care 2024 1:00 PM DIRECTOR OF AVIATION Lab [facility]patient Lab at [address] [address] HTN (hypertension) (Primary Dx) from Last 3 Months Allergies Active Allergy Reactions Criticality Noted Date [...] 09/05 Assessment & Plan (10/02/2023 9:25 AM DIRECTOR OF AVIATION): A(n) yearly Medicare Annual Wellness Visit has [...] 02/07/2022 Assessment & Plan (09/06/2022 12:36 PM DIRECTOR OF AVIATION): A(n) yearly Medicare Annual Wellness Visit has been performed today. Cristóbal Farfan is not up to date on screening tests. She is in need of DEXA, Hepatitis C and Colon cancer screening- patient relates that she had her colonoscopy around 5 years ago in [place]. She is not up to date on [...] 09/15/2021 Assessment & Plan (09/17/2021 10:42 PM DIRECTOR OF AVIATION): Continue with Alivia 60mg bid. May use Flonase at HS, one spray each nostril in the PM Do not try and pop ears. Dizziness on standing 08/31/2021 Assessment & Plan (09/17/2021 10:48 PM DIRECTOR OF AVIATION): Continue with Alivia and Flonase as previously stated. Orthostatic pressures taken sitting and standing without any difference. Patient denied any dizziness at that time. Romberg done, negative. Assessment & Plan (09/02/2021 10:55 PM DIRECTOR OF AVIATION): Make sure she is drinking enough fluids. Checked blood pressure for orthostatic problems No major differences in orthostatic pressures. Will continue to monitor blood pressure at home. Will start Meclizine 12.5mg at HS Allergic rhinitis due to allergen 08/31/2021 Assessment & Plan (09/17/2021 10:40 PM DIRECTOR OF AVIATION): Continue with Alivia 60 mg bid. Talked about avoid triggers. Assessment & Plan (09/02/2021 10:43 PM DIRECTOR OF AVIATION): Continue to take Alivia 60 mg daily, can increase dose to bid and up to tid. Talked about watching allergens.new and old. Risk factors for obstructive sleep apnea 020 HTN (hypertension) 04/27/2020 Assessment & Plan (09/17/2021 10:39 PM DIRECTOR OF AVIATION): Continue with medication as ordered. Talked about diet, avoiding salt and salty food. Talked about home exercise program for 30 min , 3 times a week. Adequate fluids. Will do lab work at next visit. Assessment & Plan (09/02/2021 10:41 PM DIRECTOR OF AVIATION): Continue with medication as ordered Encouraged to monitor BP at home at least 3 times a week at alternate time. Exercise 3 times a week for 30 minutes. Eat balanced, low salt diet or no added salt to food. Lab work due. Rotator cuff tear arthropathy of right shoulder 03/25/2020 Overview (03/25/2020): Added automatically from request for surgery [id number] Assessment & Plan (09/17/2021 10:44 PM DIRECTOR OF AVIATION): Note continues to have some right shoulder pain. Encouraged to continue with exercises she got from PT on a daily basis. Note is also using some Topical meds for shoulder pain. Watch lifting with her right arm and shoulder. Assessment & Plan (09/02/2021 10:57 PM DIRECTOR OF AVIATION): Note right shoulder is stable. Still has some limited ROM\ Encouraged to continue with exercise shoulder as advised by PT. Patient states shoulder is getting stronger. Immunizations Immunization Administration Dates Next Due Influenza, Unspecified 11/20/2024(Deferr ed: Patient Refused),10/02/2023(Deferred: Patient Refused),09/04/2023(Deferred: Patient Refused),09/06/2022(Deferred: Patient Refused),09/04/2022(Deferred: Patient Refused),09/04/2021(Deferred: Patient Refused),09/03/2021(Deferred: Patient Refused),08/31/2021(Deferred: Patient Refused),08/31/2020(Deferred: Patient Refused) Pfizer SARS-CoV-2 Monovalent Vaccination (12+ Yrs) PURPLE 09/11/2021,10/27/2020,10/06/2020 Pneumococcal Conjugate Pcv20 09/06/2022 ZOSTER Recombinant 07/08/2023,06/04/2023 Social History Tobacco Use Types Packs/Day Years [...] 11/20/2024 10:56 AM CDT Plan of Treatment Not on file Medical Devices Implanted Type Area Flight Crew Time Clerk Device Identifier Shelf Expiration Date Model / Serial / Lot [employer] [id number] 25mm Reverse Shoulder Baseplate Glenoid Trabecular Metal - [id number] Implanted:Qty: 1 on 04/29/2020 by Hoang Bates MD at [facility] Right: Shoulder [employer] [id number] 12/01/2029 [id number] / / [id number] [employer] .042 Ncb Anatomical Shoulder 4.5mm 42mm Inverse Reverse Lock Self Tap - [id number] Implanted:Qty: 1 on 04/29/2020 by Hoang Bates MD at [facility] Right: Shoulder [employer] [id number] 08/02/202223.042 / / [id number] [employer] .042 Ncb Anatomical Shoulder 4.5mm 42mm Inverse Reverse Lock Self Tap - [id number] Implanted:Qty: 1 on 04/29/2020 by Hoang Bates MD at [facility] Right: Shoulder [employer] [id number] 09/02/2022 01.62005.042 / / [id number] [employer] [id number] 36mm Reverse Shoulder Sphere Glenoid Trabecular Metal - [id number] Implanted:Qty: 1 on 04/29/2020 by Hoang Bates MD at [facility] Right: Shoulder [employer] [id number] 03/02/2030 [id number] / / [id number] [employer] [id number] 12mm 130mm Shoulder Stem Humeral Trabecular Metal Tivanium - [id number] Implanted:Qty: 1 on 04/29/2020 by Hoang Bates MD at [facility] Right: Shoulder [employer] [id number] 12/01/2029 [id number] / / [id number] [employer] [id number] 36mm H+3mm Reverse Retentive Humerus 12d 65d Liner Shoulder - [id number] Implanted:Qty: 1 on 04/29/2020 by Hoang Bates MD at [facility] Right: Shoulder [employer] [id number] 03/02/2021 [id number] / / [id number] Procedures Procedure Name Priority Date/Time Associated Diagnosis Comments EGFR Routine 2024 12:48 PM DIRECTOR OF AVIATION Primary hypertension DIFFERENTIAL AUTO Routine 2024 12: 48 PM DIRECTOR OF AVIATION Primary hypertension THYROID FUNCTION CASCADE Routine 2024 12:48 PM DIRECTOR OF AVIATION Primary hypertension VITAMIN D 25 HYDROXY Routine 2024 12:48 PM DIRECTOR OF AVIATION Vitamin D insufficiency LIPID PANEL Routine 2024 12:48 PM DIRECTOR OF AVIATION Primary hypertension COMPREHENSIVE METABOLIC PANEL Routine 2024 12:48 PM DIRECTOR OF AVIATION Primary hypertension CBC WITH AUTO DIFFERENTIAL Routine 2024 12:48 PM DIRECTOR OF AVIATION Primary hypertension HEPATITIS C ANTIBODY Routine 03/07/2023 11:47 AM CDT Need for hepatitis C screening test STOOL DNA COLOGUARD Routine 09/20/2022 9:25 AM DIRECTOR OF AVIATION Colon cancer screening HM MAMMOGRAPHY Routine 09/14/2022 from Last 3 Months or Most Recently Relevant to Health Maintenance Results * eGFR (2024 12:48 PM DIRECTOR OF AVIATION) eGFR 79 >=60 mL/min/1. 73 m2 Comment: [...] reviewed 2021. Blood 2024 12:4 8 PM DIRECTOR OF AVIATION 2024 9:59 PM DIRECTOR OF AVIATION us Pernell Topete MD LAB BLOOD ORDERABLES Final Result JEANNIE SHEPHERD [address] Department [place] [address] * Differential, auto (2024 12:48 PM DIRECTOR OF AVIATION) Neutrophil abs 3.3 1.5 - 6.5 K/cumm Imm gran abs 0.0 0.0 - 0.1 K/cumm [facility] Lymphocyte abs 1.5 0.8 - 3.3 K/cumm [facility] Monocyte abs 0.5 0.2 - 0.8 K/cumm [facility] Eosinophil abs 0.2 0.0 - 0.5 K/cumm [facility] Basophil abs 0.0 0.0 - 0.1 K/cumm [facility] Neutrophil pct 59.8 % [facility] Comment: Interpretive Data Percent cell count reference ranges are not reported, since discordance with absolute values may lead to misinterpretation of CBC data. Current Interpretive Data was last revised on 2017. Imm gran pct 0.2 % [facility] Comment: Interpretive Data Percent cell count reference ranges are not reported, since discordance with absolute values may lead to misinterpretation of CBC data. Current Interpretive Data was last revised on 2017. Lymphocyte pct 26.7 % [facility] Comment: Interpretive Data Percent cell count reference ranges are not reported, since discordance with absolute values may lead to misinterpretation of CBC data. Current Interpretive Data was last revised on 2017. Monocyte pct 9.3 % [facility] Comment: Interpretive Data Percent cell count reference ranges are not reported, since discordance with absolute values may lead to misinterpretation of CBC data. Current Interpretive Data was last revised on 2017. Eosinophil pct 3.3 % [facility] Comment: Interpretive Data Percent cell count reference ranges are not reported, since discordance with absolute values may lead to misinterpretation of CBC data. Current Interpretive Data was last revised on 2017. Basophil pct 0.7 % [facility] Comment: Interpretive Data Percent cell count reference ranges are not reported, since discordance with absolute values may lead to misinterpretation of CBC data. Current Interpretive Data was last revised on 2017. Blood 2024 12:4 8 PM DIRECTOR OF AVIATION 2024 9:24 PM DIRECTOR OF AVIATION us Pernell Topete MD LAB BLOOD ORDERABLES Final Result JEANNIE SHEPHERD [address] Department [place] [address] * Thyroid Function [place] (2024 12:48 PM DIRECTOR OF AVIATION) TSH 1.85 0.30 - 4.20 mcIUnit/mL Blood 2024 12:4 8 PM DIRECTOR OF AVIATION 2024 9:24 PM DIRECTOR OF AVIATION Pernell Topete MD LAB BLOOD ORDERABLES Final Result Performing Organization Address [facility] Co de Phone Number JEANNIE [address] [address] [facility] [place] [address] * (ABNORMAL) CBC with auto differential (2024 12:48 PM DIRECTOR OF AVIATION) Pathologist [facility] WBC 5.5 3.8 - 9.9 K/cumm Hgb 13.4 11.9 - 15.5 g/dL [facility] Hct 42.0 35.6 - 45.5 % [facility] Plt 293 150 - 400 K/cumm [facility] MPV 10.6 9.1 - 12.3 fL [facility] RBC 4.54 3.90 - 5.20 M/cumm [facility] MCV 92.5 81.3 - 96.4 fL [facility] MCH 29.5 27.1 - 33.3 pg [facility] MCHC 31.9(L) 32.3 - 35.7 g/dL [facility] RDW CV 12.5 11.1 - 14.9 % [facility] RDW SD 42.4 35.7 - 48.1 fL [facility] NRBC abs 0.00 0.00 - 0.01 K/cumm [facility] Blood 2024 12:4 8 PM DIRECTOR OF AVIATION 2024 9:24 PM DIRECTOR OF AVIATION Pernell Topete MD LAB BLOOD ORDERABLES Final Result Performing Organization Address [facility]/ZIP Co de Phone Number JEANNIE [address] [address] [facility] [place] [place] [address] * Vitamin D 25 hydroxy (2024 12:48 PM DIRECTOR OF AVIATION) Vitamin D 25-OH 69 30 - 80 ng/mL Blood 2024 12:4 8 PM DIRECTOR OF AVIATION 2024 9:24 PM DIRECTOR OF AVIATION us Pernell Topete MD LAB BLOOD ORDERABLES Final Result Performing Organization Address City/State/ZIP Co ut Phone Number JEANNIE SHEPHERD [address] Department [place] [address] * (ABNORMAL) Lipid panel (2024 12:48 PM DIRECTOR OF AVIATION) Cholesterol 187 30 - 199 mg/dL Comment: [...] NCEP Expert Panel. Circulation 2004;110:227 3. Mir M et al. ИРИНА Cardiol. 2020 January 01;5(5):540-548. doi: [email or web address].2020.0013 Current Interpretive Data was [...] JEANNIE SHEPHERD Blood 2024 12:4 8 PM DIRECTOR OF AVIATION 2024 9:24 PM DIRECTOR OF AVIATION us Pernell Topete MD LAB BLOOD ORDERABLES Final Result JEANNIE [address] Department [place] [address] * Comprehensive metabolic panel (2024 12:48 PM DIRECTOR OF AVIATION) Sodium 142 135 - 145 mmol/L Potassium, [...] classification and Diagnosis of Diabetes Diabetes Care 202; 46: S19-S40. Current interpretive data was last [...] [facility] Blood 2024 12:4 8 PM DIRECTOR OF AVIATION 2024 9:24 PM DIRECTOR OF AVIATION us Pernell Topete MD LAB BLOOD ORDERABLES Final Result JEANNIE SHEPHERD [address] Department [place] [address] * Hepatitis C antibody (03/07/2023 11:47 AM CDT) Pathologist [facility] Hep C Ab Nonreactive Nonreactive JEANNIE Comment: Interpretive Data Nonreactive: Antibodies to HCV [...] 7 AM CDT 03/07/2023 8:30 PM CDT Pernell Topete MD LAB MICROBIOLOGY - GENERAL ORDERABLES Final Result Performing Organization Address City/State/[facility] Co de Phone Number JEANNIE [address] Department [place] [address] * Stool DNA - Cologuard (09/20/2022 9:25 AM DIRECTOR OF AVIATION) [facility] Stool DNA - Cologuard Negative Negative [facility] (CLIA #:[id number]) Comment: NEGATIVE TEST RESULT. A negative Cologuard [...] screened with both Cologuard and colonoscopy. (Yousif Perez al, N Engl J Med 2014;370(14):6665-5751) The normal value (reference range) for this assay is negative. COLOGUARD RE-SCREENING RECOMMENDATION: Periodic colorectal cancer screening is an important part of preventive healthcare for asymptomatic individuals at average risk for colorectal cancer. Following a negative Cologuard result, the [place] Cancer Society and U.S. Multi-Society Task Force screening guidelines recommend a Cologuard re-screening interval of 3 years. References: [place] Cancer Society Guideline for Colorectal Cancer Screening: https://www.cancer.org/cancer/gsyqb-vgnqxh-nyiaju/xyhzofupr-khdxvrgym-eauzfnk/ac s-rec ommendations.html.; Willie DK, Delvin ROBINS, David MccoyK, Colorectal Cancer Screening: Recommendations for Physicians and Patients from the U.S. Multi-Society Task Force on Colorectal Cancer Screening , Am J Gastroenterology 2017; 112:7291-1335. TEST DESCRIPTION: Composite algorithmic analysis of stool [...] screened with both Cologuard and colonoscopy. (Yousif Perez al, N Engl J Med 2014;370(14):7492-0058.) Cologuard may produce a false negative or false positive result (no colorectal cancer or precancerous polyp present at colonoscopy follow up). A negative Cologuard test result does not guarantee the absence of CRC or advanced adenoma (pre-cancer). The current Cologuard screening interval is every 3 years. ([place] Cancer Society and U.S. Multi-Society Task Force). Cologuard performance data in a 10,000 patient pivotal study using colonoscopy as the reference method can be accessed at the following location: www.[employer]/results. Additional description of the Cologuard test process, warnings and precautions can be found at www.cologuard.com. Stool 09/20/2022 9:25 AM DIRECTOR OF AVIATION 09/21/2022 12:39 PM DIRECTOR OF AVIATION us Pernell Topete MD LAB BODY FLUIDS AND STOOLS ORDERABLES Final Result [facility] (CLIA #:[id number]) [place] [address] * HM MAMMOGRAPHY (09/14/2022) us Historical Provider HEALTH MAINTENANCE Final Result from Last 3 Months or Most Recently Relevant to Health Maintenance Insurance MEDICARE [facility] Address: [facility] [address] [place] [address] UHC MEDICARE ADVANTAGE [facility] Address: [address] [address] [place] [address] [facility] MEDICARE [facility]AGE [facility] Address: [facility] [address] [place] [address] Advance Directives For more information, please contact: [phone] * Full Code (Latest Code Status on File) Date Activated Date Inactivated Comments 04/29/2020 1:26 PM 04/30/2020 8:[address] Photographer Relationship Specialty [place] [address] [place] [address] PCP - General Family Medicine 02/06/22
== END 2024-12-23 14:08 | disposition home or self-care (01) ==
PROVIDERS: PCP Family Medicine; Visit Provider Family Medicine
DX: Z12.31 Encounter for screening mammogram for malignant neoplasm of breast (principal)
CPT/HCPCS: 77063; 77067

== ENCOUNTER 2024-12-29 14:12 | Outpatient (CLI) | payer MEDICARE, SELFPAY ==
--- NOTE | ~2024-12-29 | DEXA_ITS ---
Bone Density Report Name: Cristóbal MARTINEZ Age: 79 Sex: Female Ethnicity: White Date of : 1945 Indication: osteopenia; height loss; prior fracture; Referring Provider: HUNG, KVNG Schrader Study: Bone densitometry was performed. Exam Date: December 29, 2024 Accession number: [id number] Bone Density: Region BMD T-score Z-score Classification AP Spine(L2, L3, L4) 1.202 1.1 3.8 Normal Femoral Neck (Left) 0.611 -2.1 0.1 Osteopenia Total Hip (Left) 0.825 -1.0 1.0 Normal Femoral Neck (Right) 0.606 -2.2 0.0 Osteopenia Total Hip (Right) 0.802 -1.1 0.8 Osteopenia Total Hip Mean 0.814 -1.1 0.9 Osteopenia World Health Organization criteria for BMD impression classify patients as: Normal (T-score at or above -1.0), Osteopenia (T-score between -1.0 and -2.5), or Osteoporosis (T-score at or below -2.5). 10-year Fracture Risk(1): Major Osteoporotic Fracture 22% Hip Fracture 6.0% Reported Risk Factors: [place] (), Neck BMD=0.611, BMI=29.0, previous fracture (1) FRAX(R) Version 3.08. Fracture probability calculated for an untreated patient. Fracture probability may be lower if the patient has received treatment. Previous Exams: Region Exam Age BMD T-score BMD Change BMD Change Date g/cm2 vs Baseline vs Previous AP Spine (L2-L4) 12/29/2024 79 1.202 1.1 -0.005 (-0.4%) -0.005 (-0.4%) 09/27/2022 77 1.207 1.2 Total Hip(Left) 12/29/2024 79 0.825 -1.0 -0.006 (-0.7%) -0.006 (-0.7%) 09/27/2022 77 0.831 -0.9 Total Hip(Right) 12/29/2024 79 0.802 -1.1 -0.011 (-1.3%) -0.011 (-1.3%) 09/27/2022 77 0.813 -1.1 *Denotes significance at 95% confidence level, LSC for AP Spine = 0.022 g/cm2, LSC for Total Hip = 0.027 g/cm2 Clinical Information Provided by Patient: Has had a low trauma fracture Has used the following medications: Vitamin D Patient maximum height was 67 Menopause Age: 56 No regular weight bearing exercise Does not regularly consume dairy products Drinks caffeinated beverages Onset of menses at age 16 Number of children 4 Impression: The patient has low bone mass, based on the Right Femoral Neck T-score. The patient has an estimated ten-year risk of hip fracture of 6% and an estimated ten-year risk of major fracture of 22%, based on the WHO FRAX algorithm. The patient has risk factors, including: previous fracture. No significant bone loss was observed. Discussion: BONE DENSITY IS LOW AT ONE OR MORE SKELETAL SITES. THE PATIENT'S BMD AND CLINICAL RISK FACTORS CONTRIBUTE TO THIS PATIENT'S HIGH RISK OF FRACTURE. This patient's lowest T-score is low at one or more skeletal sites. It meets the World Health Organization's (WHO) criteria for ?low bone mass? (T-score between -1.0 and -2.5). The patient's 10-year risk of hip fracture and 10 year risk of a major osteoporotic fracture as calculated by FRAX exceeds the threshold where pharmacological therapy is recommended by the National Osteoporosis Foundation (NOF). However, all treatment decisions require clinical judgment and consideration of individual patient factors, including patient preferences, comorbidities, previous drug use, risk factors not captured in the FRAX model (e.g., frailty, falls, vitamin D deficiency, increased bone turnover, interval significant decline in bone density) and possible under or overestimation of fracture risk by FRAX. The patient should follow a healthful lifestyle (good nutrition with adequate calcium and vitamin D, and appropriate weight-bearing exercise). Follow-Up: Consider a repeat BMD and Vertebral Fracture Assessment (VFA) exam in 2 years or sooner if medically necessary, to reassess this patient's status. Reported by: SUSANA on 12/29/2024 2:48:00 PM. Reviewed, dictated and finalized at location [facility]
--- OUTSIDE RECORDS SUMMARY | 2024-12-29 16:23 | XMS_ITS | Clinical Summary ---
Author Organization [facility] Address [address] [place] [id number] Care Team Providers Care Machine Designer Name Role Phone Pernell Topete MD Primary [...] patient's age to complete this topic Insurance [facility] Care Teams Machine Designer Relationship Specialty Start Date End Date Pernell Topete MD [address] [place] [address] [address] [place] [address] PCP - General FAMILY PRACTICE 09/14/22
--- OUTSIDE RECORDS SUMMARY | 2024-12-29 16:23 | XMS_ITS | Clinical Summary ---
Author Organization [facility] Address [address] [place] [id number] Care Team Providers Care Geodetic Engineer Name Role Phone Pernell Topete MD Primary [...] 7.5 mg daily 90 tablet 3 4 Active ibuprofen (ADVIL,MOTRIN) 800 mg tabletIndications :Anti-inflammator [...] 7.5 MG 100 tablet 2 5 Active Active Problems Problem Noted Date Diagnosed Date Encounter for Medicare annual wellness exam 09/05 Assessment & Plan (10/02/2023 9:25 AM RULING MACHINE SET UP OPERATOR): A(n) yearly Medicare Annual Wellness Visit has [...] 02/07/2022 Assessment & Plan (09/06/2022 12:36 PM RULING MACHINE SET UP OPERATOR): A(n) yearly Medicare Annual Wellness Visit has been performed today. Cristóbal Farfan is not up to date on screening tests. She is in need of DEXA, Hepatitis C and Colon cancer screening- patient relates that she had her colonoscopy around 5 years ago in [place]. She is not up to date on [...] 09/15/2021 Assessment & Plan (09/17/2021 10:42 PM RULING MACHINE SET UP OPERATOR): Continue with Alivia 60mg bid. May use Flonase at HS, one spray each nostril in the PM Do not try and pop ears. Dizziness on standing 08/31/2021 Assessment & Plan (09/17/2021 10:48 PM RULING MACHINE SET UP OPERATOR): Continue with Alivia and Flonase as previously stated. Orthostatic pressures taken sitting and standing without any difference. Patient denied any dizziness at that time. Romberg done, negative. Assessment & Plan (09/02/2021 10:55 PM RULING MACHINE SET UP OPERATOR): Make sure she is drinking enough fluids. Checked blood pressure for orthostatic problems No major differences in orthostatic pressures. Will continue to monitor blood pressure at home. Will start Meclizine 12.5mg at HS Allergic rhinitis due to allergen 08/31/2021 Assessment & Plan (09/17/2021 10:40 PM RULING MACHINE SET UP OPERATOR): Continue with Alivia 60 mg bid. Talked about avoid triggers. Assessment & Plan (09/02/2021 10:43 PM RULING MACHINE SET UP OPERATOR): Continue to take Alivia 60 mg daily, can increase dose to bid and up to tid. Talked about watching allergens.new and old. Risk factors for obstructive sleep apnea 020 HTN (hypertension) 04/27/2020 Assessment & Plan (09/17/2021 10:39 PM RULING MACHINE SET UP OPERATOR): Continue with medication as ordered. Talked about diet, avoiding salt and salty food. Talked about home exercise program for 30 min , 3 times a week. Adequate fluids. Will do lab work at next visit. Assessment & Plan (09/02/2021 10:41 PM RULING MACHINE SET UP OPERATOR): Continue with medication as ordered Encouraged to monitor BP at home at least 3 times a week at alternate time. Exercise 3 times a week for 30 minutes. Eat balanced, low salt diet or no added salt to food. Lab work due. Rotator cuff tear arthropathy of right shoulder 03/25/2020 Overview (03/25/2020): Added automatically from request for surgery [id number] Assessment & Plan (09/17/2021 10:44 PM RULING MACHINE SET UP OPERATOR): Note continues to have some right shoulder pain. Encouraged to continue with exercises she got from PT on a daily basis. Note is also using some Topical meds for shoulder pain. Watch lifting with her right arm and shoulder. Assessment & Plan (09/02/2021 10:57 PM RULING MACHINE SET UP OPERATOR): Note right shoulder is stable. Still has some limited ROM\ Encouraged to continue with exercise shoulder as advised by PT. Patient states shoulder is getting stronger. Encounters Date Type Department Care Team Description 12/24/2024 Orders Only [facility] Medical [facility] Primary Care at [address] [address] Pernell Topete MD Breast cancer screening by mammogram 11/24/2024 Telephone [facility] Primary Care at [address] [address] Pernell Topete MD Medical Question/Miscellaneo us 11/20/2024 1:30 PM CDT Office Visit [facility] Primary Care at [address] [address] Pernell Topete MD Encounter for annual wellness visit (AWV) in Medicare patient (Primary Dx); Vitamin D insufficiency; Primary hypertension; Chronic pain of right knee; Breast cancer screening by mammogram; Screening for osteoporosis; Asymptomatic menopausal state from Last 3 Months Immunizations Immunization Administration [...] Last Done Comments Hepatitis B Screening 1963 Covid-19 Vaccine ( - season) 2024 09/11/2021, 10/27/2020, 10/06/2020 Osteoporosis Screening-Bone Density Scan 09/27/2024 09/27/2022 Influenza Vaccine (Season Ended) 2025 DTaP/Tdap/Td Vaccine (1 - Tdap) 09/02/2025 Postponed from 1957 (Insurance / Financial) Depression Screening 11/20/2025 11/20/2024, 04/01/2024, 10/02/2023, Additional history exists Fall Risk Assessment 11/20/2025 11/20/2024, 10/02/2023, 03/07/2023, Additional history exists Well Visit 65+ 11/20/2025 11/20/2024, 09/05, 09/06/2022 Breast Cancer Screening-Mammogram 12/23/2025 12/23/2024, 09/14/2022, 09/14/2022, Additional history exists Pneumococcal vaccine 65+ Completed 09/06/2022 Colon Cancer Screening-DNA Stool Discontinued 09/20/2022 Colon Cancer Screening-FIT Discontinued 09/20/2022 Colon Cancer Screening-FOBT Discontinued 09/20/2022 Colorectal Cancer Screening Discontinued Hepatitis C Screening Completed 03/07/2023 Zoster Vaccine Completed 07/08/2023, 06/04/2023 Colon Cancer Screening-CT Colonography Discontinued Colon Cancer Screening-Colonoscopy Discontinued Colon Cancer Screening-Sigmoidoscopy Discontinued Medical Devices Implanted Type Area [place] Tour Guide Device Identifier Shelf Expiration Date Model / Serial / Lot Juan [employer] [id number] 25mm Reverse Shoulder Baseplate Glenoid Trabecular Metal - [id number] Implanted:Qty: 1 on 04/29/2020 by Hoang Bates MD at [facility] Right: Shoulder [employer] [id number] 12/01/2029 [id number] / / [id number] [employer] 01.87889.042 Ncb Anatomical Shoulder 4.5mm 42mm Inverse Reverse Lock Self Tap - [id number] Implanted:Qty: 1 on 04/29/2020 by Hoang Bates MD at [facility] Right: Shoulder [employer] [id number] 08/02/2022 01.29313.042 / / [id number] [employer] 01.48679.042 Ncb Anatomical Shoulder 4.5mm 42mm Inverse Reverse Lock Self Tap - [id number] Implanted:Qty: 1 on 04/29/2020 by Hoang Bates MD at [facility] Right: Shoulder [employer] [id number] 09/02/2022.92833.042 / / [id number] [employer] [id number] 36mm Reverse Shoulder Sphere Glenoid Trabecular Metal - [id number] Implanted:Qty: 1 on 04/29/2020 by Hoang Bates MD at [facility] Right: Shoulder [employer] [id number] 03/02/2030 [id number] / / [id number] [employer] [id number] 12mm 130mm Shoulder Stem Humeral Trabecular Metal Tivanium - [id number] Implanted:Qty: 1 on 04/29/2020 by Hoang Bates MD at [facility] Right: Shoulder [employer] [id number] 12/01/2029 [id number] / / [id number] [employer] [id number] 36mm H+3mm Reverse Retentive Humerus 12d 65d Liner Shoulder - [id number] Implanted:Qty: 1 on 04/29/2020 by Hoang Bates MD at [facility] Right: Shoulder [employer] [id number] 03/02/2021 [id number] / / [id number] Procedures Procedure Name Priority Date/Time Associated Diagnosis Comments SCREENING MAMMOGRAM BILATERAL W ZACHARY Schedule Routine, Read Routine (OP Routine) 12/23/2024 Breast cancer screening by mammogram HEPATITIS C ANTIBODY Routine 03/07/2023 11:47 AM CDT Need for hepatitis C screening test STOOL DNA COLOGUARD Routine 09/20/2022 9:25 AM RULING MACHINE SET UP OPERATOR Colon cancer screening from Last 3 Months or Most Recently Relevant to Health Maintenance Results * SCREENING MAMMOGRAM BILATERAL W ZACHARY (12/23/2024) Anatomical Region Laterality Modality Breast Bilateral Mammography Pernell Topete MD IMG MAMMO PROCEDURES Final Result * Hepatitis C antibody (03/07/2023 11:47 AM CDT) Hep C Ab Nonreactive Nonreactive JEANNIE Comment: [...] - GENERAL ORDERABLES Final Result JEANNIE SHEPHERD [address] [place] [address] * Stool DNA - Cologuard (09/20/2022 9:25 AM RULING MACHINE SET UP OPERATOR) Stool DNA - Cologuard Negative Negative [employer] (CLIA #:[id number]) Comment: NEGATIVE TEST RESULT. A negative Cologuard [...] Brooks et al, N Engl J Med 2014;370(14):8523-9293) The normal value (reference range) for this assay is negative. COLOGUARD RE-SCREENING RECOMMENDATION: Periodic colorectal cancer screening is an important part of preventive healthcare for asymptomatic individuals at average risk for colorectal cancer. Following a negative Cologuard result, the [place] Cancer Society and U.S. Multi-Society Task Force screening guidelines recommend a Cologuard re-screening interval of 3 years. References: [place] Cancer Society Guideline for Colorectal Cancer Screening: https://www.cancer.org/cancer/vxcly-vdjbwe-xmurcw/dekkkdbti-oceigdavj-eekpzcv/ac s-rec ommendations.html.; Willie OSPINA, Delvin CR, David MccoyK, Colorectal Cancer Screening: Recommendations for Physicians and Patients from the U.S. Multi-Society Task Force on Colorectal Cancer Screening , Am J Gastroenterology 2017; 112:3083-2656. TEST DESCRIPTION: Composite algorithmic analysis of stool [...] (Yousif Perez al, N Engl J Med 2014;370(14):9207-4042.) Cologuard may produce a false negative or false positive result (no colorectal cancer or precancerous polyp present at colonoscopy follow up). A negative Cologuard test result does not guarantee the absence of CRC or advanced adenoma (pre-cancer). The current Cologuard screening interval is every 3 years. ([place] Cancer Society and U.S. Multi-Society Task Force). Cologuard performance data in a 10,000 patient pivotal study using colonoscopy as the reference method can be accessed at the following location: www.[employer]Asterion/results. Additional description of the Cologuard test process, warnings and precautions can be found at www.cologuard.com. Stool 09/20/2022 9:25 AM RULING MACHINE SET UP OPERATOR 09/21/2022 12:39 PM RULING MACHINE SET UP OPERATOR Pernell Topete MD LAB BODY FLUIDS AND STOOLS ORDERABLES Final Result [employer] (CLIA #:[id number]) [address] [address] from Last 3 Months or Most Recently Relevant to Health Maintenance Insurance MEDICARE [facility] MEDICARE ADVANTAGE Advance Directives For more information, please contact: [phone] * Full Code (Latest Code Status on File) Date Activated Date Inactivated Comments 04/29/2020 1:26 PM 04/30/2020 8:18 PM Care Teams Geodetic Engineer Relationship Specialty Start Date End Date Perenll Topete MD [address] [place] [address] PCP - General Family Medicine 02/06/22
--- OUTSIDE RECORDS SUMMARY | 2024-12-29 16:23 | XMS_ITS | Encounter Summary ---
Author Organization [facility] Healthcare Address [address] [place] [address] Care Team Providers Care Aperture Mask Etcher Name Role Phone Pernell Topete MD Primary Care Provider [phone] Encounter Details Date Type Department Care Team ([facility] st Contact Info) Description 12/24/2024 Orders Only [facility] Medical Group Primary Care at [address] [address] Pernell Topete MD [address] [place] [address] [address] [place] [address] Breast cancer screening by mammogram Social History Tobacco Use Types Packs/Day Years Used Date Smoking Tobacco: Never Smokeless Tobacco: Never Alcohol Use Standard Drinks/Week Comments Yes 0 [...] on file Sexual Orientation Not on file documented as of this encounter Plan of Treatment Not on file documented as of this encounter Procedures Procedure Name Priority Date/Time Associated Diagnosis Comments SCREENING MAMMOGRAM BILATERAL W ZACHARY Schedule Routine, Read Routine (OP Routine) 12/23/2024 Breast cancer screening by mammogram documented in this encounter Results * SCREENING MAMMOGRAM BILATERAL W ZACHARY (12/23/2024) Anatomical Region Laterality Modality Breast Bilateral Mammography us Pernell Topete MD IMG MAMMO PROCEDURES Final Result documented in this encounter Visit Diagnoses Diagnosis Breast cancer screening by mammogram documented in this encounter Care Teams Aperture Mask Etcher Relationship Specialty Start Date End Date Pernell Topete MD [address] [place] [address] PCP - General Family Medicine 02/06/22 documented as of this encounter
--- OUTSIDE RECORDS SUMMARY | 2024-12-29 16:23 | XMS_ITS | Referral Summary ---
Author Organization [facility] Address [address] [place] [id number] Care Team Providers Care Hot Box Checker Name Role Phone Pernell Topete MD Primary Care Provider [phone] Encounters Date Type Department Care Team Description 12/24/2024 Orders Only [facility] Medical Group Primary Care at [address] [address] Pernell Topete MD Breast cancer screening by mammogram 11/24/2024 Telephone [facility] Medical [facility] Primary Care at [address] [address] Pernell Topete MD Medical Question/Miscellaneo us 11/20/2024 1:30 PM CDT Office Visit [facility] Primary Care at [address] [address] Pernell Topete MD Encounter for annual wellness visit (AWV) in Medicare patient (Primary Dx); Vitamin D insufficiency; Primary hypertension; Chronic pain of right knee; Breast cancer screening by mammogram; Screening for osteoporosis; Asymptomatic menopausal state from Last 3 Months Allergies Active Allergy [...] 09/05 Assessment & Plan (10/02/2023 9:25 AM INFORMATION AND REFERRAL DIRECTOR): A(n) yearly Medicare Annual Wellness Visit has [...] 02/07/2022 Assessment & Plan (09/06/2022 12:36 PM INFORMATION AND REFERRAL DIRECTOR): A(n) yearly Medicare Annual Wellness Visit has been performed today. Cristóbal Farfan is not up to date on screening tests. She is in need of DEXA, Hepatitis C and Colon cancer screening- patient relates that she had her colonoscopy around 5 years ago in [place]. She is not up to date on [...] 09/15/2021 Assessment & Plan (09/17/2021 10:42 PM INFORMATION AND REFERRAL DIRECTOR): Continue with Alivia 60mg bid. May use Flonase at HS, one spray each nostril in the PM Do not try and pop ears. Dizziness on standing 08/31/2021 Assessment & Plan (09/17/2021 10:48 PM INFORMATION AND REFERRAL DIRECTOR): Continue with Alivia and Flonase as previously stated. Orthostatic pressures taken sitting and standing without any difference. Patient denied any dizziness at that time. Romberg done, negative. Assessment & Plan (09/02/2021 10:55 PM INFORMATION AND REFERRAL DIRECTOR): Make sure she is drinking enough fluids. Checked blood pressure for orthostatic problems No major differences in orthostatic pressures. Will continue to monitor blood pressure at home. Will start Meclizine 12.5mg at HS Allergic rhinitis due to allergen 08/31/2021 Assessment & Plan (09/17/2021 10:40 PM INFORMATION AND REFERRAL DIRECTOR): Continue with Alivia 60 mg bid. Talked about avoid triggers. Assessment & Plan (09/02/2021 10:43 PM INFORMATION AND REFERRAL DIRECTOR): Continue to take Alivia 60 mg daily, can increase dose to bid and up to tid. Talked about watching allergens.new and old. Risk factors for obstructive sleep apnea 020 HTN (hypertension) 04/27/2020 Assessment & Plan (09/17/2021 10:39 PM INFORMATION AND REFERRAL DIRECTOR): Continue with medication as ordered. Talked about diet, avoiding salt and salty food. Talked about home exercise program for 30 min , 3 times a week. Adequate fluids. Will do lab work at next visit. Assessment & Plan (09/02/2021 10:41 PM INFORMATION AND REFERRAL DIRECTOR): Continue with medication as ordered Encouraged to monitor BP at home at least 3 times a week at alternate time. Exercise 3 times a week for 30 minutes. Eat balanced, low salt diet or no added salt to food. Lab work due. Rotator cuff tear arthropathy of right shoulder 03/25/2020 Overview (03/25/2020): Added automatically from request for surgery [id number] Assessment & Plan (09/17/2021 10:44 PM INFORMATION AND REFERRAL DIRECTOR): Note continues to have some right shoulder pain. Encouraged to continue with exercises she got from PT on a daily basis. Note is also using some Topical meds for shoulder pain. Watch lifting with her right arm and shoulder. Assessment & Plan (09/02/2021 10:57 PM INFORMATION AND REFERRAL DIRECTOR): Note right shoulder is stable. Still has [...] on file Medical Devices Implanted Type Area Electron Beam Operator Device Identifier Shelf Expiration Date Model / Serial / Lot [employer] [id number] 25mm Reverse Shoulder Baseplate Glenoid Trabecular Metal - [id number] Implanted:Qty: 1 on 04/29/2020 by Hoang Bates MD at [facility] Right: Shoulder [employer] [id number] 12/01/2029 [id number] / / [id number] [employer] 01.33794.042 Ncb Anatomical Shoulder 4.5mm 42mm Inverse Reverse Lock Self Tap - [id number] Implanted:Qty: 1 on 04/29/2020 by Hoang Bates MD at [facility] Right: Shoulder [employer] [id number] 08/02/2022 01.90562.042 / / [id number] [employer] .[id number] Ncb Anatomical Shoulder 4.5mm 42mm Inverse Reverse Lock Self Tap - [id number] Implanted:Qty: 1 on 04/29/2020 by Hoang Bates MD at [facility] Right: Shoulder [employer] [id number] 09/02/2022 01.18816.042 / / [id number] [employer] [id number] 36mm Reverse Shoulder Sphere Glenoid Trabecular Metal - [id number] Implanted:Qty: 1 on 04/29/2020 by Hoang Bates MD at [facility] Right: Shoulder [employer] [id number] 03/02/2030 [id number] / / [id number] [employer] [id number] 12mm 130mm Shoulder Stem Humeral Trabecular Metal [employer]ivan[employer] - [id number] Implanted:Qty: 1 on 04/29/2020 by Hoang Bates MD at [facility] Right: Shoulder [employer] [id number] 12/01/2029 [id number] / / [id number] [employer] [id number] 36mm H+3mm Reverse Retentive Humerus 12d 65d Liner Shoulder - [id number] Implanted:Qty: 1 on 04/29/2020 by Hoang Bates MD at [facility] Right: Shoulder [employer] [id number] 03/02/2021 [id number] / / [id number] Procedures Procedure Name Priority Date/Time Associated Diagnosis Comments SCREENING MAMMOGRAM BILATERAL W ZACHARY Schedule Routine, Read Routine (OP Routine) 12/23/2024 Breast cancer screening by mammogram HEPATITIS C ANTIBODY Routine 03/07/2023 11:47 AM CDT Need for hepatitis C screening test STOOL DNA COLOGUARD Routine 09/20/2022 9:25 AM INFORMATION AND REFERRAL DIRECTOR Colon cancer screening from Last 3 Months or Most Recently Relevant to Health Maintenance Results * SCREENING MAMMOGRAM BILATERAL W ZACHARY (12/23/2024) Anatomical Region Laterality Modality Breast Bilateral Mammography Pernell Topete MD IMG MAMMO PROCEDURES Final Result * Hepatitis C antibody (03/07/2023 11:47 AM CDT) Hep C Ab Nonreactive Nonreactive JEANNIE SHEPHERD Comment: Interpretive Data Nonreactive: Antibodies to HCV [...] GENERAL ORDERABLES Final Result Performing Organization Address City/State/[facility] Phone Number JEANNIE [address] [facility] Department [place] [address] * Stool DNA - Cologuard (09/20/2022 9:25 AM INFORMATION AND REFERRAL DIRECTOR) Stool DNA - Cologuard Negative Negative [employer] (CLIA #:[id number]) Comment: NEGATIVE TEST RESULT. A negative Cologuard [...] (Yousif Perez al, N Engl J Med 2014;370(14):9067-4653) The normal value (reference range) for this assay is negative. COLOGUARD RE-SCREENING RECOMMENDATION: Periodic colorectal cancer screening is an important part of preventive healthcare for asymptomatic individuals at average risk for colorectal cancer. Following a negative Cologuard result, the [place] Cancer Society and U.S. Multi-Society Task Force screening guidelines recommend a Cologuard re-screening interval of 3 years. References: [place] Cancer Society Guideline for Colorectal Cancer Screening: https://www.cancer.org/cancer/pctbm-femmep-ytyvzk/esoionfjs-xgizlzfhl-bbvibyp/ac s-rec ommendations.html.; Willie OSPINA, Delvin CR, David ESTEVES, Colorectal Cancer Screening: Recommendations for Physicians and Patients from the U.S. Multi-Society Task Force on Colorectal Cancer Screening , Am J Gastroenterology 2017; 112:4336-6868. TEST DESCRIPTION: Composite algorithmic analysis of stool [...] (Yousif Perez al, N Engl J Med 2014;370(14):4286-9076.) Cologuard may produce a false negative or false positive result (no colorectal cancer or precancerous polyp present at colonoscopy follow up). A negative Cologuard test result does not guarantee the absence of CRC or advanced adenoma (pre-cancer). The current Cologuard screening interval is every 3 years. ([place] Cancer Society and U.S. Multi-Society Task Force). Cologuard performance data in a 10,000 patient pivotal study using colonoscopy as the reference method can be accessed at the following location: www.[employer]com/results. Additional description of the Cologuard test process, warnings and precautions can be found at www.[employer].com. Stool 09/20/2022 9:25 AM INFORMATION AND REFERRAL DIRECTOR 09/21/2022 12:39 PM INFORMATION AND REFERRAL DIRECTOR Pernell Topete MD LAB BODY FLUIDS AND STOOLS ORDERABLES Final Result [employer] (CLIA #:[id number]) [address] [place] [address] from Last 3 Months or Most Recently Relevant to Health Maintenance Insurance MEDICARE [facility] MEDICARE [facility] Address: [address] [address] [place] [address] Advance Directives For more information, please contact: [phone] * Full Code (Latest Code Status on File) Date Activated Date Inactivated Comments 04/29/2020 1:26 PM 04/30/2020 8:18 PM Care Teams Hot Box Checker Relationship Specialty Start Date End Date Pernell Topete MD [address] [place] [address] PCP - General Family Medicine 02/06/22
== END 2024-12-29 14:13 | disposition home or self-care (01) ==
LOC: ANHIMG 14:16
PROVIDERS: PCP Family Medicine; Visit Provider Family Medicine
DX: M85.89 Other specified disorders of bone density and structure, multiple sites (principal)
CPT/HCPCS: 77080